=== PATIENT | female | born 1960 | race African-American/Black ===

== ENCOUNTER 2018-07-22 15:30 | Inpatient (IN) | payer OTHER, MEDICAID ==
[~2018-07-22] VITALS: Ht 162.6 cm; Wt 63.5 kg
[2018-07-22 15:38] VITALS: BP_SYST 155
[2018-07-22] MEDS ORDERED: LIDOCAINE 1%, 20 ML MDV 20 ML ONE (16:17)
[2018-07-22] MEDS ORDERED: NACL 0.9% 1,000 ML IV ONE (16:30)
[2018-07-22 19:27] VITALS: BP_SYST 165
[2018-07-22] MEDS ORDERED: CARVEDILOL 6.25 MG TABLET (COREG) PO SCH ×2 (21:30→23:30)
[2018-07-22] MEDS ORDERED: QUEtiapine FUMARATE 100 MG TABLET PO SCH ×2 (21:30→23:30)
[2018-07-22] MEDS ORDERED: traZODone HCL 50 MG TABLET (DESYREL) PO SCH ×2 (21:30→23:30)
[2018-07-23 00:28] VITALS: BP_SYST 132
[2018-07-23 06:31] LABS: BILIRUBIN,URINE NEGATIVE (NEGATIVE); BLOOD, URINE NEGATIVE (NEGATIVE); CLARITY/URINE CLEAR (CLEAR); COLOR,URINE YELLOW (YELLOW); GLUCOSE,URINE NEGATIVE (NEGATIVE); KETONES,URINE NEGATIVE (NEGATIVE); LEUKOCYTE ESTERASE ,URINE 2+ (NEGATIVE); NITRITE, URINE NEGATIVE (NEGATIVE); PROTEIN URINE NEGATIVE (NEGATIVE); UROBILINOGEN,URINE 0.2 (0.2-1.0)
[2018-07-23 06:36] LABS: BASOPHILS % (AUTO) 0.3 % (0.0-2.0); EOSINOPHILS # (AUTO) 0.1 K/uL (0.0-0.4); EOSINOPHILS % (AUTO) 1.9 % (0.0-4.0); HEMATOCRIT 35.5 % (36-48); HEMOGLOBIN 11.6 g/dL (12.0-16.0); LYMPHOCYTES # (AUTO) 1.6 K/uL (1.0-5.5); LYMPHOCYTES % (AUTO) 28.1 % (20.5-51.5); MEAN CORPUSCULAR HEMOGLOBIN 27 pg (27-31); MEAN CORPUSCULAR HGB CONC 33 % (32-36); MEAN CORPUSCULAR VOLUME 81 fL (79.0-98.0); MONOCYTES # (AUTO) 0.6 K/uL (0.0-1.0); MONOCYTES % (AUTO) 11.1 % (1.7-9.3); NEUTROPHILS # (AUTO) 3.4 K/uL (1.8-7.7); NEUTROPHILS % (AUTO) 58.6 % (40.0-70.0); PLATELET COUNT (AUTO) 144 K/uL (130-430); RED BLOOD CELL COUNT(AUTO) 4.37 MIL/uL (4.2-6.2); RED CELL DISTRIBUTION WIDTH 13.5 % (9.0-15.0); WHITE BLOOD COUNT (AUTO) 5.8 K/uL (4.8-10.8)
[2018-07-23 06:43] LABS: BACTERIA,URINE FEW /HPF (None Seen); RBC,URINE 0-3 /HPF (0-3)
[2018-07-23 06:53] LABS: PROTHROMBIN TIME 10.2 SECS (9.5-12.5)
[2018-07-23 06:58] LABS: ALBUMIN 2.9 g/dL (3.4-4.8); CREATININE 0.8 mg/dL (0.55-1.30); POTASSIUM 4.2 mmol/L (3.5-5.1); TOTAL BILIRUBIN 0.3 mg/dL (0.0-1.0)
[2018-07-23 07:00] LABS: BARBITURATE, URINE NEGATIVE (NEG <=200); BENZODIAZEPINE, URINE NEGATIVE (NEG <=150); CANNABINOID, URINE NEGATIVE (NEG <=50); COCAINE, URINE NEGATIVE (NEG <=150); METHAMPHETAMINES SCREEN,URINE NEGATIVE (NEG <=500); OPIATE, URINE NEGATIVE (NEG <=100); PHENCYCLIDINE SCREEN,URINE NEGATIVE (NEG <=25); UR TRICYCLIC ANTIDEPRESSANTS POSITIVE (NEG <=300); URINE AMPHETAMINE NEGATIVE (NEG <=500); URINE METHADONE NEGATIVE (NEG <=200); URINE OXYCODONE SCREEN NEGATIVE (NEG <=100); URINE PROPOXYPHENE SCREEN NEGATIVE (NEG <=300)
[2018-07-23 08:40] VITALS: BP_SYST 137
[2018-07-23] MEDS ORDERED: LIDOCAINE 1%, 20 ML MDV 0 ML ONE (10:01)
[2018-07-23] MEDS: QUEtiapine FUMARATE 100 MG TABLET PO SCH (12:33)
[2018-07-23] MEDS: CARVEDILOL 6.25 MG TABLET (COREG) PO SCH ×2 (12:35→21:01)
[2018-07-23] MEDS: ENALAPRIL MALEATE 5 MG TABLET (VASOTEC) PO SCH (12:35)
[2018-07-23 12:42] VITALS: BP_SYST 115
[2018-07-23] MEDS ORDERED: PENICILLIN G BENZATHINE 1.2 MMU/2 ML SYR IM ONE (13:45)
[2018-07-23] MEDS ORDERED: CEPHALEXIN 250 MG CAPSULE PO ONE (13:45)
[2018-07-23 17:30] VITALS: BP_SYST 129
[2018-07-23 20:10] VITALS: BP_SYST 112
[2018-07-23] MEDS ORDERED: QUEtiapine FUMARATE 100 MG TABLET PO SCH (21:00)
[2018-07-23] MEDS ORDERED: traZODone HCL 50 MG TABLET (DESYREL) PO SCH (21:00)
[2018-07-23] MEDS ORDERED: ACETAMINOPHEN 325 MG TABLET PO PRN (22:30)
[2018-07-23] MEDS: CEPHALEXIN 250 MG CAPSULE PO SCH (23:11)
[2018-07-23] MEDS: ACETAMINOPHEN 325 MG TABLET PO PRN (23:15)
[2018-07-24 00:24] VITALS: BP_SYST 102
[2018-07-24] MEDS: CEPHALEXIN 250 MG CAPSULE PO SCH ×3 (07:19→17:49)
[2018-07-24] MEDS: ACETAMINOPHEN 325 MG TABLET PO PRN (07:37)
[2018-07-24 08:00] VITALS: BP_SYST 137
[2018-07-24] MEDS: QUEtiapine FUMARATE 100 MG TABLET PO SCH (08:05)
[2018-07-24] MEDS: CARVEDILOL 6.25 MG TABLET (COREG) PO SCH (08:06)
[2018-07-24] MEDS: ENALAPRIL MALEATE 5 MG TABLET (VASOTEC) PO SCH (08:06)
[2018-07-24 10:08] LABS: HEPATITIS A AB, IgM Negative (Negative); HEPATITIS B CORE AB, IgM Negative (Negative); HEPATITIS B SURFACE AG Negative (Negative)
[2018-07-24 13:01] VITALS: BP_SYST 137
[2018-07-24 16:05] VITALS: BP_SYST 128; BP_SYST 132
[2018-07-24 16:42] VITALS: BP_SYST 118
[2018-07-25] MEDS ORDERED: QUEtiapine FUMARATE 100 MG TABLET PO SCH (09:00)
[2018-07-28 11:20] LABS: FTA-Ab (T PALLIDUM) Reactive (Non Reactive)
== END 2018-07-24 18:26 | DRG 57 ==
LOC: EDSEX 15:30 → SED 15:30 → SMU 16:44
PROVIDERS: ADMIT Internal Medicine Infectious Disease; ATTEND Preventive Medicine Preventive Medicine/Occupational Environmental Medicine
DX: A52.3 Neurosyphilis, unspecified (principal); N39.0 Urinary tract infection, site not specified; E88.09 Other disorders of plasma-protein metabolism, not elsewhere classified; F32.9 Major depressive disorder, single episode, unspecified; F20.9 Schizophrenia, unspecified; D64.9 Anemia, unspecified; I10 Essential (primary) hypertension; I25.10 Atherosclerotic heart disease of native coronary artery without angina pectoris; Z53.20 Procedure and treatment not carried out because of patient's decision for unspecified reasons; F14.10 Cocaine abuse, uncomplicated; R73.9 Hyperglycemia, unspecified; Z59.0 Homelessness; I25.2 Old myocardial infarction; Z91.030 Bee allergy status; Z86.73 Personal history of transient ischemic attack (TIA), and cerebral infarction without residual deficits; Z88.8 Allergy status to other drugs, medicaments and biological substances
CPT/HCPCS: 36415; 70450-TC; 71045; 80053; 80074; 80307; 81000-TC; 85025; 85610-TC; 85730-TC; 86592; 86780; 87081; 93005; 96360; 99285; J0561; J2001; J7030